=== PATIENT | male | born 1975 | race African-American/Black ===

== ENCOUNTER 2023-01-30 12:39 | Inpatient (IN) | payer MEDICARE ==
[~2023-01-30] VITALS: Ht 193 cm; Wt 75.1 kg
[2023-01-30 13:37] LABS: APPEARANCE,URINE CLEAR (CLEAR); BILIRUBIN,URINE NEGATIVE (NEGATIVE); BLOOD, URINE NEGATIVE Ery/uL (NEGATIVE); COLOR,URINE YELLOW (YELLOW); KETONES,URINE NEGATIVE (NEGATIVE); LEUKOCYTE ESTERASE ,URINE NEGATIVE (NEGATIVE); NITRITE, URINE NEGATIVE (NEGATIVE); PROTEIN,URINE NEGATIVE (NEGATIVE); UGLUCOSE NEGATIVE (NEGATIVE)
[2023-01-30] MEDS ORDERED: DIVA-78 PO (13:56)
[2023-01-30] MEDS ORDERED: AMLO-212 PO (13:56)
[2023-01-30] MEDS ORDERED: CLOZ100T32 PO (13:56)
[2023-01-30] MEDS ORDERED: NA P133E RC (13:56)
[2023-01-30] MEDS ORDERED: MULT-447 PO (13:56)
[2023-01-30] MEDS ORDERED: LEVE500T9 PO (13:56)
[2023-01-30] MEDS ORDERED: ACET-868 PO (13:56)
[2023-01-30] MEDS ORDERED: LITH150C PO (13:56)
[2023-01-30] MEDS ORDERED: OLAN5TAB3 PO (13:56)
[2023-01-30] MEDS ORDERED: GLUC1KIT SQ (13:56)
[2023-01-30] MEDS ORDERED: METF-440 PO (13:56)
[2023-01-30] MEDS ORDERED: AMAN100T PO (13:56)
[2023-01-30] MEDS ORDERED: BISA10SU11 RC (13:56)
[2023-01-30] MEDS ORDERED: MAGN400O6 PO (13:56)
[2023-01-30 14:16] LABS: ADD URINE CULTURE NO; BACTERIA,URINE None seen /HPF (None Seen); RBC,URINE NONE SEEN /HPF (0-2); SQUAMOUS EPITHELIAL CELL,UR Rare /HPF (None Seen); WBC,URINE 0-2 /HPF (0-3)
[2023-01-30 15:00] LABS: BASOPHILS % (AUTO) 0.5 % (0.0-2.0); EOSINOPHILS # (AUTO) 0.1 K/uL (0.0-0.7); EOSINOPHILS % (AUTO) 1.5 % (0.0-6.0); HEMATOCRIT 39 % (39-51); HEMOGLOBIN 12.6 g/dL (13.5-17.5); LYMPHOCYTES # (AUTO) 1.5 K/uL (0.8-4.8); MEAN CORPUSCULAR HEMOGLOBIN 29 PG (26.0-33.0); MEAN CORPUSCULAR HGB CONC 33 g/dl (31.0-36.0); MEAN CORPUSCULAR VOLUME 90 fL (80-96); MONOCYTES # (AUTO) 0.7 K/uL (0.1-1.30); MONOCYTES % (AUTO) 9.3 % (2.0-12.0); NEUTROPHILS # (AUTO) 5.6 K/uL (1.8-8.9); NEUTROPHILS % (AUTO) 69.7 % (43.0-81.0); PLATELET COUNT (AUTO) 301 K/uL (150-450); RED CELL DISTRIBUTION WIDTH 16.6 % (11.5-15.0)
[2023-01-30 15:07] LABS: CALCIUM, SERUM 9.6 mg/dL (8.5-10.1); CREATININE 0.7 mg/dL (0.6-1.3); POTASSIUM 4.1 mmol/L (3.5-5.1)
[2023-01-30 15:09] VITALS: O2SAT 97
[2023-01-30 15:13] LABS: ALBUMIN 3.6 g/dL (3.4-5.0); BILIRUBIN,TOTAL 0.3 mg/dL (0.2-1.0); TOTAL PROTEIN, SERUM 8.3 g/dL (6.4-8.2)
[2023-01-30] MEDS ORDERED: NA PHOS,M-B/NA PHOS,DI-BA 1 EA ENEMA RC PRN (15:30)
[2023-01-30] MEDS ORDERED: MAG HYDROX/AL HYDROX/SIMETH 30 ML UDC PO PRN (15:30)
[2023-01-30] MEDS ORDERED: ACETAMINOPHEN 325 MG TABLET PO PRN (15:30)
[2023-01-30] MEDS ORDERED: HYDROCODONE/APAP 5/325MG TABLET PO PRN (15:30)
[2023-01-30] MEDS ORDERED: ONDANSETRON HCL/PF 4 MG/2 ML VIAL IVP PRN (15:30)
[2023-01-30] MEDS ORDERED: DEXTROSE 50%-WATER 50 ML DISP.SYRIN IV PRN (15:30)
[2023-01-30] MEDS ORDERED: BISACODYL SUPP (10 MG) 10 MG/SUPP.RECT SUPP.RECT RC PRN (15:30)
[2023-01-30] MEDS ORDERED: Z GUARD REMEDY 4 OZ OINT TP PRN (15:30)
[2023-01-30] MEDS ORDERED: MAGNESIUM HYDROXIDE 30 ML UDC PO PRN (15:30)
[2023-01-30 16:00] VITALS: BP 138/75; TEMP 98.2; O2SAT 97
[2023-01-30] MEDS: AMANTADINE HCL 100 MG CAPSULE PO SCH (17:41)
[2023-01-30] MEDS: CLOZAPINE 100 MG TABLET PO SCH ×2 (17:42→21:04)
[2023-01-30] MEDS: LEVETIRACETAM (250 MG) 250 MG TABLET PO SCH (17:42)
[2023-01-30] MEDS: METFORMIN 500 MG TABLET PO SCH (17:42)
[2023-01-30] MEDS: DIVALPROEX SODIUM 500 MG TABLET.DR PO SCH (17:42)
[2023-01-30] MEDS: BLOOD SUGAR DIAGNOSTIC 1 EACH STRIP IN SCH ×2 (17:54→22:00)
[2023-01-30] MEDS: INSULIN REGULAR, HUMAN 100 UNIT/ML 3 ML VIAL SQ PRN (17:54)
[2023-01-30 20:00] VITALS: BP 109/53; TEMP 98; O2SAT 96
[2023-01-30] MEDS: OLANZAPINE 5 MG TABLET PO SCH (21:04)
[2023-01-31 06:12] LABS: BASOPHILS % (AUTO) 0.4 % (0.0-2.0); EOSINOPHILS # (AUTO) 0.1 K/uL (0.0-0.7); EOSINOPHILS % (AUTO) 1.9 % (0.0-6.0); HEMATOCRIT 38 % (39-51); HEMOGLOBIN 12.3 g/dL (13.5-17.5); LYMPHOCYTES # (AUTO) 1.9 K/uL (0.8-4.8); MEAN CORPUSCULAR HEMOGLOBIN 29 PG (26.0-33.0); MEAN CORPUSCULAR HGB CONC 32 g/dl (31.0-36.0); MEAN CORPUSCULAR VOLUME 91 fL (80-96); MONOCYTES # (AUTO) 0.7 K/uL (0.1-1.30); MONOCYTES % (AUTO) 10.2 % (2.0-12.0); NEUTROPHILS # (AUTO) 3.8 K/uL (1.8-8.9); NEUTROPHILS % (AUTO) 58.5 % (43.0-81.0); PLATELET COUNT (AUTO) 293 K/uL (150-450); RED BLOOD CELL COUNT(AUTO) 4.19 MIL/uL (4.5-6.0); RED CELL DISTRIBUTION WIDTH 16.7 % (11.5-15.0); WHITE BLOOD COUNT (AUTO) 6.5 K/uL (4.3-11.0)
[2023-01-31 06:32] LABS: CREATININE 0.8 mg/dL (0.6-1.3); PHOSPHORUS 3.4 mg/dL (2.5-4.9)
[2023-01-31] MEDS: BLOOD SUGAR DIAGNOSTIC 1 EACH STRIP IN SCH ×4 (06:35→22:06)
[2023-01-31 07:00] VITALS: BP 112/70; TEMP 97.7; O2SAT 100
[2023-01-31] MEDS: PANTOPRAZOLE 40 MG TABLET.DR PO SCH (08:25)
[2023-01-31] MEDS: LITHIUM CARBONATE 150 MG CAPSULE PO SCH (09:00)
[2023-01-31] MEDS: CLOZAPINE 100 MG TABLET PO SCH ×4 (09:40→21:17)
[2023-01-31] MEDS: METFORMIN 500 MG TABLET PO SCH ×2 (09:40→17:27)
[2023-01-31] MEDS: DIVALPROEX SODIUM 500 MG TABLET.DR PO SCH ×2 (09:40→17:27)
[2023-01-31] MEDS: LEVETIRACETAM (250 MG) 250 MG TABLET PO SCH ×2 (09:41→17:28)
[2023-01-31] MEDS: AMANTADINE HCL 100 MG CAPSULE PO SCH ×2 (09:41→17:28)
[2023-01-31] MEDS: AMLODIPINE BESYLATE 5 MG TABLET PO SCH (09:43)
[2023-01-31] MEDS: MULTIVITAMINS,THERAGRAN 1 UDTAB TABLET PO SCH (09:43)
[2023-01-31] MEDS: INSULIN REGULAR, HUMAN 100 UNIT/ML 3 ML VIAL SQ PRN ×3 (11:48→22:08)
[2023-01-31 16:00] VITALS: BP 113/61; TEMP 97.5; O2SAT 98
[2023-01-31 20:00] VITALS: BP 105/63; TEMP 98.2; O2SAT 96
[2023-01-31] MEDS: OLANZAPINE 5 MG TABLET PO SCH (22:10)
[2023-02-01] MEDS: BLOOD SUGAR DIAGNOSTIC 1 EACH STRIP IN SCH ×4 (06:27→22:36)
[2023-02-01 07:30] VITALS: BP 137/75; TEMP 98.5; O2SAT 95
[2023-02-01] MEDS: METFORMIN 500 MG TABLET PO SCH ×2 (08:12→16:32)
[2023-02-01] MEDS: MULTIVITAMINS,THERAGRAN 1 UDTAB TABLET PO SCH (08:12)
[2023-02-01] MEDS: PANTOPRAZOLE 40 MG TABLET.DR PO SCH (08:12)
[2023-02-01] MEDS: AMANTADINE HCL 100 MG CAPSULE PO SCH ×2 (08:13→16:32)
[2023-02-01] MEDS: DIVALPROEX SODIUM 500 MG TABLET.DR PO SCH ×2 (08:13→16:32)
[2023-02-01] MEDS: CLOZAPINE 100 MG TABLET PO SCH ×4 (08:13→21:18)
[2023-02-01] MEDS: LEVETIRACETAM (250 MG) 250 MG TABLET PO SCH ×2 (08:13→16:32)
[2023-02-01] MEDS: AMLODIPINE BESYLATE 5 MG TABLET PO SCH (08:14)
[2023-02-01] MEDS: LITHIUM CARBONATE 150 MG CAPSULE PO SCH ×2 (09:00→09:25)
[2023-02-01] MEDS: INSULIN REGULAR, HUMAN 100 UNIT/ML 3 ML VIAL SQ PRN ×2 (17:28→22:40)
[2023-02-01 21:33] VITALS: BP 111/61; TEMP 98; O2SAT 100
[2023-02-01] MEDS: OLANZAPINE 5 MG TABLET PO SCH (21:49)
[2023-02-02] MEDS: BLOOD SUGAR DIAGNOSTIC 1 EACH STRIP IN SCH ×2 (07:34→12:18)
[2023-02-02] MEDS: INSULIN REGULAR, HUMAN 100 UNIT/ML 3 ML VIAL SQ PRN (07:34)
[2023-02-02] MEDS: DIVALPROEX SODIUM 500 MG TABLET.DR PO SCH (08:32)
[2023-02-02] MEDS: PANTOPRAZOLE 40 MG TABLET.DR PO SCH (08:32)
[2023-02-02] MEDS: METFORMIN 500 MG TABLET PO SCH (08:33)
[2023-02-02] MEDS: CLOZAPINE 100 MG TABLET PO SCH ×2 (08:33→13:26)
[2023-02-02] MEDS: LEVETIRACETAM (250 MG) 250 MG TABLET PO SCH (08:33)
[2023-02-02] MEDS: AMLODIPINE BESYLATE 5 MG TABLET PO SCH (08:34)
[2023-02-02] MEDS: LITHIUM CARBONATE 150 MG CAPSULE PO SCH (08:35)
[2023-02-02] MEDS: MULTIVITAMINS,THERAGRAN 1 UDTAB TABLET PO SCH (08:38)
[2023-02-02] MEDS: AMANTADINE HCL 100 MG CAPSULE PO SCH (08:39)
[2023-02-02 08:48] VITALS: BP 121/77; TEMP 98; O2SAT 97
== END 2023-02-02 15:32 | DRG 392 ==
LOC: ER 13:10 → TELE 16:10 → MED 01-31 10:22
DX: R14.0 Abdominal distension (gaseous) (principal); G40.909 Epilepsy, unspecified, not intractable, without status epilepticus; E11.9 Type 2 diabetes mellitus without complications; F31.9 Bipolar disorder, unspecified; I10 Essential (primary) hypertension; Z79.84 Long term (current) use of oral hypoglycemic drugs; D64.9 Anemia, unspecified; J44.9 Chronic obstructive pulmonary disease, unspecified; Z20.822 Contact with and (suspected) exposure to COVID-19; T43.595A Adverse effect of other antipsychotics and neuroleptics, initial encounter; Y92.89 Other specified places as the place of occurrence of the external cause; Y92.129 Unspecified place in nursing home as the place of occurrence of the external cause
CPT/HCPCS: 36415; 76700-TC; 80048-TC; 80053-TC; 80164-TC; 81001; 82962-TC; 83690-TC; 83735-TC; 84100-TC; 85025-TC; 87081-TC; G0378; J1815

== ENCOUNTER 2024-11-04 13:50 | Inpatient (IN) | payer MEDICARE, OTHER ==
[~2024-11-04] VITALS: Ht 177.8 cm; Wt 81.6 kg
[~2024-11-04 13:50] MED LIST: *INS REG3 SQ; ACET-868 PO; AMAN100T PO; AMLO-212 PO; BISA10SU11 RC; CLOZ100T32 PO; DIVA-78 PO; GLUC1KIT SQ; LACT10SO58 PO; LEVE500T9 PO; LITH150C PO; METF-440 PO; NA P133E RC; OLAN5TAB3 PO; PANT40TA49 PO; POLY17PO4 PO; PSYL3.4P6 PO; SENN-175 PO
[2024-11-04 14:31] LABS: BASOPHILS % (AUTO) 0.3 % (0.0-2.0); EOSINOPHILS % (AUTO) 0.3 % (0.0-6.0); HEMATOCRIT 38 % (39-51); HEMOGLOBIN 11.9 g/dL (13.5-17.5); LYMPHOCYTES # (AUTO) 1.4 K/uL (0.8-4.8); LYMPHOCYTES % (AUTO) 15.1 % (20.0-44.0); MEAN CORPUSCULAR HEMOGLOBIN 29 PG (26.0-33.0); MEAN CORPUSCULAR HGB CONC 31 g/dl (31.0-36.0); MEAN CORPUSCULAR VOLUME 93 fL (80-96); MONOCYTES # (AUTO) 0.3 K/uL (0.1-1.30); MONOCYTES % (AUTO) 3.1 % (2.0-12.0); NEUTROPHILS # (AUTO) 7.5 K/uL (1.8-8.9); NEUTROPHILS % (AUTO) 81.2 % (43.0-81.0); PLATELET COUNT (AUTO) 457 K/uL (150-450); RED BLOOD CELL COUNT(AUTO) 4.06 MIL/uL (4.5-6.0); RED CELL DISTRIBUTION WIDTH 20.5 % (11.5-15.0); WHITE BLOOD COUNT (AUTO) 9.3 K/uL (4.3-11.0)
[2024-11-04 14:43] LABS: CALCIUM, SERUM 9.1 mg/dL (8.5-10.1); CARBON DIOXIDE 30 mmol/L (21-32); CHLORIDE 102 mmol/L (98-107); CREATININE 0.5 mg/dL (0.6-1.3); GLUCOSE 136 mg/dL (74-106); SODIUM SERUM 138 mmol/L (136-145); UREA NITROGEN, BLOOD 7 mg/dL (7-18)
[2024-11-04 14:47] LABS: ACETAMINOPHEN <10 ug/ml (10-30); ALANINE AMINOTRANSFERASE 26 U/L (12-78); ALBUMIN 2.6 g/dL (3.4-5.0); ALCOHOL, BLOOD < 3 mg/dL (0-10); ALKALINE PHOSPHATASE 91 U/L (46-116); ASPARTATE AMINOTRANSFERASE 18 U/L (15-37); BILIRUBIN,DIRECT 0.1 mg/dL (0.0-0.2); BILIRUBIN,TOTAL 0.3 mg/dL (0.2-1.0); SALICYLATE 1.9 mg/dL (2.8-20.0); TOTAL PROTEIN, SERUM 7.8 g/dL (6.4-8.2)
[2024-11-04 14:52] LABS: APPEARANCE,URINE CLEAR (CLEAR); BILIRUBIN,URINE Negative (NEGATIVE); BLOOD, URINE Negative Ery/uL (NEGATIVE); COLOR,URINE YELLOW (YELLOW); KETONES,URINE Negative (NEGATIVE); LEUKOCYTE ESTERASE ,URINE Negative (NEGATIVE); PROTEIN,URINE Negative (NEGATIVE); UGLUCOSE Negative (NEGATIVE)
[2024-11-04 14:54] LABS: NITRITE, URINE NEGATIVE (NEGATIVE)
[2024-11-04 15:00] LABS: AMPHETAMINE, URINE NEGATIVE (NEGATIVE); BARBITURATE, URINE NEGATIVE (NEGATIVE); BENZODIAZEPINE, URINE NEGATIVE (NEGATIVE); CANNABINOID, URINE NEGATIVE (NEGATIVE); COCCAINE, URINE NEGATIVE (NEGATIVE); PHENCYCLIDINE SCREEN,URINE NEGATIVE (NEGATIVE)
[2024-11-04 15:02] LABS: OPIATE, URINE POSITIVE (NEGATIVE)
[2024-11-04] MEDS ORDERED: MULT-594 PO (15:35)
[2024-11-04] MEDS ORDERED: LORA-259 PO (15:35)
[2024-11-04] MEDS ORDERED: GABA600T12 PO (15:35)
[2024-11-04] MEDS ORDERED: NUTR1PAC14 PO (15:35)
[2024-11-04] MEDS ORDERED: IPRA12.9 IH (15:35)
[2024-11-04] MEDS ORDERED: QUET50TA PO (15:35)
[2024-11-04] MEDS ORDERED: LEVA0.6320 IH (15:35)
[2024-11-04] MEDS ORDERED: ASCO500T10 PO (15:35)
[2024-11-04] MEDS ORDERED: TAMS-12 PO (15:35)
[2024-11-04] MEDS ORDERED: METO-357 PO (15:35)
[2024-11-04] MEDS ORDERED: ZINC220C6 PO (15:35)
[2024-11-04] MEDS ORDERED: LITH150C PO (15:35)
[2024-11-04] MEDS ORDERED: HYDR-3980 PO ×2 (15:35)
[2024-11-04 15:47] LABS: ADD URINE CULTURE NO; BACTERIA,URINE None seen /HPF (None Seen); RBC,URINE 0-2 /HPF (0-2); SQUAMOUS EPITHELIAL CELL,UR Rare /HPF (None Seen); WBC,URINE 0-2 /HPF (0-3)
[2024-11-04] MEDS ORDERED: LORAZEPAM 0.5 MG TABLET PO PRN ×2 (17:00)
[2024-11-04] MEDS ORDERED: ACETAMINOPHEN 325 MG TABLET PO PRN (17:00)
[2024-11-04] MEDS ORDERED: TEMAZEPAM 7.5 MG CAPSULE PO PRN ×3 (17:00→17:30)
[2024-11-04] MEDS ORDERED: MAGNESIUM HYDROXIDE 30 ML UDC PO PRN ×2 (17:00→17:30)
[2024-11-04] MEDS ORDERED: MAG HYDROX/AL HYDROX/SIMETH 30 ML UDC PO PRN ×2 (17:00→17:30)
[2024-11-04] MEDS ORDERED: DEXTROSE 50%-WATER 50 ML DISP.SYRIN IV PRN (18:00)
[2024-11-04] MEDS ORDERED: ALBUTEROL FS 2.5 MG/3 ML VIAL.NEB NEB PRN (18:00)
[2024-11-04] MEDS: BLOOD SUGAR DIAGNOSTIC 1 EACH STRIP IN ONE (18:05)
[2024-11-04] MEDS ORDERED: IPRATROPIUM NEB FS 0.5 MG/2.5 ML AMPUL.NEB NEB PRN (19:30)
[2024-11-04 19:44] VITALS: BP 136/88; TEMP 97.7; O2SAT 96
[2024-11-04] MEDS: TAMSULOSIN 0.4 MG CAP.SR.24H PO SCH (21:28)
[2024-11-04] MEDS: BLOOD SUGAR DIAGNOSTIC 1 EACH STRIP IN SCH (21:28)
[2024-11-05 08:00] VITALS: BP 117/77; TEMP 98; O2SAT 98
[2024-11-05] MEDS: PANTOPRAZOLE 40 MG TABLET.DR PO SCH (08:19)
[2024-11-05] MEDS: LEVETIRACETAM (250 MG) 250 MG TABLET PO SCH (09:35)
[2024-11-05] MEDS: ASCORBIC ACID 500 MG TABLET PO SCH (09:35)
[2024-11-05] MEDS: GABAPENTIN 300 MG CAPSULE PO SCH ×2 (09:37→21:11)
[2024-11-05] MEDS: MULTIVITAMINS,THERAGRAN 1 UDTAB TABLET PO SCH (09:37)
[2024-11-05] MEDS: METOPROLOL SUCCINATE 50 MG TAB.SR.24H PO SCH (09:37)
[2024-11-05] MEDS: DIVALPROEX SODIUM 500 MG TABLET.DR PO SCH (09:37)
[2024-11-05] MEDS: ZINC SULFATE 220 MG CAPSULE PO SCH (09:38)
[2024-11-05] MEDS: DAKINS QUARTER STRENGTH (0.125%) 480 ML BOTTLE TOP SCH ×2 (10:09→18:49)
[2024-11-05] MEDS: ARGININE/GLUTAMINE/CALCIUM BMB 1 EACH POWD.PACK PO SCH (10:09)
[2024-11-05 11:39] LABS: ALBUMIN 2.4 g/dL (3.4-5.0); BILIRUBIN,TOTAL 0.4 mg/dL (0.2-1.0); CALCIUM, SERUM 9.2 mg/dL (8.5-10.1); CREATININE 0.4 mg/dL (0.6-1.3); TOTAL PROTEIN, SERUM 7.1 g/dL (6.4-8.2)
[2024-11-05 11:46] LABS: POTASSIUM 3.7 mmol/L (3.5-5.1)
[2024-11-05 11:56] LABS: THYROID STIMULATING HORMONE 0.76 uIU/mL (0.358-3.74)
[2024-11-05] MEDS: GLUCERNA SHAKE 237 ML CAN PO SCH (12:47)
[2024-11-05] MEDS: LORAZEPAM 1 MG TABLET PO PRN (14:52)
[2024-11-05 16:00] VITALS: BP 136/76; TEMP 98; O2SAT 95
[2024-11-05 20:00] VITALS: BP 110/63; TEMP 98.2; O2SAT 97
[2024-11-05] MEDS: QUETIAPINE FUMARATE 25 MG TABLET PO SCH (21:11)
[2024-11-06 09:47] VITALS: BP 128/88; TEMP 98.4; O2SAT 98
[2024-11-06] MEDS: LORAZEPAM 0.5 MG TABLET PO PRN (12:51)
[2024-11-06 16:22] VITALS: BP 125/84; TEMP 97.8; O2SAT 94
[2024-11-06 20:06] VITALS: BP 103/58; TEMP 98; O2SAT 94
[2024-11-07 08:00] VITALS: BP 105/74; TEMP 97.9; O2SAT 100
[2024-11-07] MEDS: INSULIN REGULAR, HUMAN 100 UNIT/ML 3 ML VIAL SQ PRN (11:57)
[2024-11-07 16:03] VITALS: BP 111/86; TEMP 98.1; O2SAT 100
[2024-11-07 20:39] VITALS: BP 111/69; TEMP 98; O2SAT 96
[2024-11-08] MEDS: TEMAZEPAM 7.5 MG CAPSULE PO PRN (01:36)
[2024-11-08] MEDS: OLANZAPINE 10 MG VIAL IM STA (07:59)
[2024-11-08] MEDS: FERROUS SULFATE (325 MG) 325 MG/TAB TABLET PO SCH (08:50)
[2024-11-08] MEDS: HYDROCODONE/APAP 10/325MG TABLET PO PRN (10:29)
[2024-11-08] MEDS: QUETIAPINE FUMARATE 25 MG TABLET PO SCH (13:40)
[2024-11-08 16:00] VITALS: BP 124/81; TEMP 98.2; O2SAT 95
[2024-11-08 21:37] VITALS: BP 134/67; TEMP 98.3; O2SAT 95
[2024-11-08 22:30] VITALS: BP 128/76; TEMP 98.3; O2SAT 100
[2024-11-09 08:00] VITALS: BP 101/70; TEMP 98.7; O2SAT 98
[2024-11-09 15:43] VITALS: BP 105/57; TEMP 98.7; O2SAT 95
[2024-11-09 20:22] VITALS: BP 112/65; TEMP 98.5; O2SAT 94
[2024-11-10 08:00] VITALS: BP 113/75; TEMP 98.1; O2SAT 98
[2024-11-10] MEDS: LORAZEPAM INJ 2 MG/ML VIAL IM ONE (13:46)
[2024-11-10] MEDS: diphenhydrAMINE HCL 50 MG/ML VIAL IM ONE (13:52)
[2024-11-10] MEDS: HALOPERIDOL LACTATE INJ 5 MG/ML VIAL IM ONE (13:52)
[2024-11-10 15:52] VITALS: BP 104/60; TEMP 98.6; O2SAT 97
[2024-11-10 19:47] VITALS: BP 115/64; TEMP 97.9; O2SAT 97
[2024-11-10] MEDS: OLANZAPINE ZYDIS 5 MG TAB.RAPDIS SL SCH (21:26)
[2024-11-11 08:00] VITALS: BP 118/74; TEMP 98.6; O2SAT 98
[2024-11-11 15:40] VITALS: BP 119/65; TEMP 98.6; O2SAT 94
[2024-11-11 20:51] VITALS: BP 117/63; TEMP 98.3; O2SAT 95
[2024-11-12 08:00] VITALS: BP 119/60; TEMP 98.7; O2SAT 98
[2024-11-12] MEDS: ACETAMINOPHEN 325 MG TABLET PO PRN (10:30)
[2024-11-12 16:00] VITALS: BP 134/75; TEMP 98.4; O2SAT 96
[2024-11-13 08:00] VITALS: BP 157/83; TEMP 97.9; O2SAT 98
[2024-11-13] MEDS: HALOPERIDOL LACTATE INJ 5 MG/ML VIAL IM ONE (10:49)
[2024-11-13] MEDS: LORAZEPAM INJ 2 MG/ML VIAL IM ONE (10:49)
[2024-11-13] MEDS: diphenhydrAMINE HCL 50 MG/ML VIAL IM ONE (10:49)
[2024-11-13 16:00] VITALS: BP 114/61; TEMP 98.8; O2SAT 96
[2024-11-13 20:00] VITALS: BP 110/63; TEMP 98.5; O2SAT 95
[2024-11-14 08:00] VITALS: BP 119/72; TEMP 97.8; O2SAT 97
[2024-11-14] MEDS: diphenhydrAMINE HCL 50 MG/ML VIAL IM ONE (15:44)
[2024-11-14] MEDS: HALOPERIDOL LACTATE INJ 5 MG/ML VIAL IM ONE (15:44)
[2024-11-14] MEDS: LORAZEPAM INJ 2 MG/ML VIAL IM ONE (15:45)
[2024-11-14 16:00] VITALS: BP 110/74; TEMP 98; O2SAT 98
[2024-11-14 20:00] VITALS: BP 116/80; TEMP 98.1; O2SAT 96
[2024-11-15 08:00] VITALS: BP 120/73; TEMP 97.5; O2SAT 95
[2024-11-15 16:00] VITALS: BP 116/61; TEMP 97.5; O2SAT 100
[2024-11-16 08:19] VITALS: BP 100/71; TEMP 98.1; O2SAT 98
[2024-11-16 16:52] VITALS: BP 92/44; TEMP 98.7; O2SAT 95
[2024-11-16 20:45] VITALS: BP 108/63; TEMP 98.2; O2SAT 95
[2024-11-17 08:00] VITALS: BP 129/73; TEMP 98.7; O2SAT 98
[2024-11-17 16:00] VITALS: BP 100/56; TEMP 98.1; O2SAT 96
[2024-11-17 19:32] VITALS: BP 103/59; TEMP 98.3; O2SAT 97
[2024-11-18 08:00] VITALS: BP 108/61; TEMP 98.7; O2SAT 98
[2024-11-18 08:11] VITALS: BP 108/61
== END 2024-11-18 16:16 | DRG 885 ==
LOC: ER 13:56 → GPS 16:24
PROVIDERS: ADMIT Psychiatry & Neurology Psychiatry; ATTEND Nurse Practitioner Family
DX: F25.0 Schizoaffective disorder, bipolar type (principal); L89.154 Pressure ulcer of sacral region, stage 4; E44.0 Moderate protein-calorie malnutrition; K51.90 Ulcerative colitis, unspecified, without complications; G93.49 Other encephalopathy; F29 Unspecified psychosis not due to a substance or known physiological condition; D64.9 Anemia, unspecified; E11.42 Type 2 diabetes mellitus with diabetic polyneuropathy; E88.09 Other disorders of plasma-protein metabolism, not elsewhere classified; R13.10 Dysphagia, unspecified; I10 Essential (primary) hypertension; J44.9 Chronic obstructive pulmonary disease, unspecified; Z79.4 Long term (current) use of insulin; N40.0 Benign prostatic hyperplasia without lower urinary tract symptoms; Z79.899 Other long term (current) drug therapy; Z20.822 Contact with and (suspected) exposure to COVID-19; Z73.6 Limitation of activities due to disability; L98.8 Other specified disorders of the skin and subcutaneous tissue; G40.909 Epilepsy, unspecified, not intractable, without status epilepticus; F03.90 Unspecified dementia, unspecified severity, without behavioral disturbance, psychotic disturbance, mood disturbance, and anxiety; Z68.25 Body mass index [BMI] 25.0-25.9, adult
CPT/HCPCS: 36415; 80048-TC; 80053-TC; 80061-TC; 80076-TC; 80164-TC; 81001; 82607-TC; 82728-TC; 82962-TC; 83540-TC; 84443-TC; 85025-TC; 87081-TC; 97110-TC; 97112-TC; 97116-TC; 97530-TC; A6253; A6403; G0480; J1200; J1630; J1815; J2060; J3490